=== PATIENT | male | born 1950 | race Caucasian/White ===

== ENCOUNTER 2018-08-12 08:23 | Outpatient (CLI) | payer MEDICARE, OTHER ==
[~2018-08-12] VITALS: Ht 185.4 cm; Wt 100.0 kg
--- NOTE | ~2018-08-12 | HEMODYNAMI ---
PATIENT:KULWINDER DUENAS MEDICAL RECORD: [id number] : 46 LOCATION:[facility] ADMISSION DATE: 08/12/18 Generatedon:08/12/201812:26 Patient name: KULWINDER DUENAS Patient #: [id number] SSN: : 1950 Date of study: 08/12/2018 Page: Of Hemodynamic Procedure Report Patient Data Patient Demographics Procedure consent was obtained First Name: KULWINDER Gender: Male Last Name: HENRIQUE : 1950 Patient #: [id number] Age: 68 year(s) Race: Additional ID: [id number] Contact details Address: [address] [place] [address] lane State: [place] City: [place] Zip code: [address] Past Medical History Allergies: No known allergies Admission Admission Data Admission Date: 08/12/2018 Admission Time: 8:23 Admit Source: Other Lab Results Lab Result Date: 08/12/2018 Lab Result Time: 8:55 Biochemistry Name Units Result Min Max BUN mg/dl 11 --(-*--)-- 7 18 Creatinine mg/dl 0.8 --(-*--)-- 0.6 1.3 CBC Name Units Result Min Max Hematocrit % 42 --(*---)-- 42 54 Hemoglobin g/dl 14.5 --(*---)-- 13.5 17.5 Procedure Procedure Types Cath Procedure Diagnostic Procedure [facility] w/Coronaries PCI Procedure Coronary Stent Coronary Stent Initial Procedure Description Procedure Date Procedure Date: 08/12/2018 Procedure Start Time: 12:12 Procedure End Time: 12:25 Procedure Staff Name Function Franki Arguello MD Performing Physician Miguel Tipton RT Monitor Amanda Elizalde RT Scrub Sharon Talebrt RN Nurse Raciel Kingsley RN Mdm Sr Procedure Data Cath Procedure Fluoroscopy Diagnostic fluoroscopy Total fluoroscopy Time: 2.6 time: 2.6 min min Diagnostic fluoroscopy Total fluoroscopy dose: 621 dose: 621 mGy mGy Contrast Material Contrast Material Type Amount (ml) Isovue 300 60 Entry Location Entry Primary Successful Side Size Upsize Upsize Entry Closure Johnson ccessful Closure Location (Fr) 1 (Fr) 2 (Fr) Remarks Device Remarks Radial Right 6 Fr Mechanical artery Short Compression Estimated blood loss: 10 ml Diagnostic catheters Device Type Used For End Catheter Placement DIAGNOSTIC Wylie 110cm 5 Procedure Fr catheter ([id number]) Procedure Complications No complications Procedure Medications Medication Administration Route Dosage 0.9% NaCl I.V. 100 ml/hr Oxygen etCO2 Nasal cannula 2 l/min Lidocaine 2% added to field 20 Heparin Flush Bag added to field 2 bags (1000units/500ml NS) Radial Cocktail added to field 1 syringe (Verapomil 2mg/Nitro 400mcg/Heparin 1500units) Versed I.V. 2 mg Fentanyl I.V. 50 mcg Heparin Bolus I.V. 4000 units Versed I.V. 2 mg Fentanyl I.V. 25 mcg Hemodynamics Rest HGB: 14.5 (g/dl) Heart Rate: 67 (bpm) Pressure Samples Time Site Value (mmHg) Purpose Heart Use Rate(bpm) 12:15 LV 166/58,13 Snapshot 96 Snapshots Pre Cath Intra NCS Post Cath Vital Signs Time Heart Resp SPO2 etCO2 NIBP (mmHg) Rhythm Pain Sedation Rate (ipm) (%) (mmHg) Status Level (bpm) 11:54:42 62 12 97 38 170/92(135) NSR 0 (11) 10(A) , No pain 11:59:02 63 13 99 35.8 156/88(138) NSR 0 (11) 10(A) , No pain 12:03:18 59 10 97 41.1 120/65(114) SB 0 (11) 10(A) , No pain 12:07:26 58 10 96 39.6 120/81(95) SB 0 (11) 10(A) , No pain 12:11:40 57 12 97 41.1 114/65(93) SB 0 (11) 10(A) , No pain 12:15:48 64 10 97 35.1 91/58(75) NSR 0 (11) 9(A) , No pain 12:19:52 63 12 97 39.6 100/59(77) NSR 0 (11) 9(A) , No pain 12:24:00 57 13 97 39.6 116/63(95) SB 0 (11) 10(A) , No pain Medications Time Medication Route Dose Verified Delivered Reason Not es Effectiveness by by 11:53:36 0.9% NaCl I.V. 100 Franki Sharon used for ml/hr Saundra Talbert pumping plant operator 11:53:45 Oxygen etCO2 2 l/min Franki Sharon used for Nasal Saundra Talbert procedure cannula RN 11:53:51 Lidocaine 2% added 20ml Franki Franki for local to vial Saundra Arguello MD anesthetic field 11:53:56 Heparin Flush added 2 bags Franki Franki used for Bag to Saundra Arguello MD procedure (1000units/500ml field NS) 11:54:06 Radial Cocktail added 1 Franki Franki used for (Verapomil to syringe Saundra Arguello MD procedure 2mg/Nitro field 400mcg/Heparin 1500units) 12:10:26 Versed I.V. 2 mg Franki Sharon for sedation Saundra Talbert RN 12:10:35 Fentanyl I.V. 50 mcg Franki Sharon for sedation Saundra Talbert RN 12:15:23 Versed I.V. 2 mg Franki Sharon for sedation Saundra Talbert RN 12:15:37 Fentanyl I.V. 25 mcg Franki Sharon for sedation Saundra Talbert RN 12:17:10 Heparin Bolus I.V. 4000 Franki Sharon for danette ified units Saundra Talbert anticoagulation with Dr. CAROLYN Arguello Procedure Log Time Note 11:30:12 Raciel Kingsley RN sent for patient. Start room use. 11:44:51 Informed consent obtained and on chart 11:44:53 Admit Source: Other 11:45:10 Diagnostic Cath status Elective 11:45:17 Time tracking: Regular hours (M-F 7:00 - 5:00) 11:45:20 Plan of Care:Hemodynamics will remain stable., Cardiac rhythm will remain stable., Comfort level will be maintained., Respiratory function will remain adequate., Patient/ family verbilizes understanding of procedure., Procedure tolerated without complication., Recovers from procedure without complications.. 11:45:31 H&P Date Dictated: 08/09/2018 Within 30 days and on chart., H&P Addendum completed by physician on day of procedure. (MUST COMPLETE FOR ALL OUTPATIENTS). 11::44 Lab Result : Creatinine 0.8 mg/dl ::44 Lab Result : BUN 11 mg/dl ::44 Lab Result : Hemoglobin 14.5 g/dl :44 Lab Result : Hematocrit 42 % 11:47:48 Lab results completed and on chart. 11:49:24 Patient received from Pre/Post Procedure Room to CCL 1 Alert and oriented. Tansferred to table in Supine position. 11:49:26 Warm blankets applied, and wojciech hugger turned on for patient comfort. 11:49:26 Correct patient and procedure confirmed by team. 11:49:27 ECG and BP/O2 sat monitors applied to patient. 11:49:35 Pre-procedure instructions explained to patient. 11:49:35 Pre-op teaching completed and patient verbalized understanding. 11:49:37 Family in waiting room. 11:49:38 Patient NPO since Midnight. 11:53:19 Vital chart was started 11:53:36 0.9% NaCl 100 ml/hr I.V. was administered by Sharon Talbert RN; used for procedure; 11:53:45 Oxygen 2 l/min etCO2 Nasal cannula was administered by Sharon Talbert RN; used for procedure; 11:53:51 Lidocaine 2% 20ml vial added to field was administered by Franki Arguello MD; for local anesthetic; 11:53:56 Heparin Flush Bag (1000units/500ml NS) 2 bags added to field was administered by Franki Arguello MD; used for procedure; 11:54:06 Radial Cocktail (Verapomil 2mg/Nitro 400mcg/Heparin 1500units) 1 syringe added to field was administered by Franki Arguello MD; used for procedure; 11:56:18 Baseline sample Acquired. 11:56:33 Full Disclosure recording started 11:56:58 Is the patient allergic to Iodine/contrast media? No. 11:57:03 Was the patient premedicated? N/A 11:57:10 Is patient on blood thinner?Yes 11:57:29 Patient diabetic? No. 11:57:32 If diabetic: On Metformin? N/A 11:57:54 ACC The patient was administered the following blood thiners within the last 24 hours: ACCPlavix 12:02:33 ACC The patient was administered the following blood thiners within the last 24 hours: ACCPlavix 12:02:52 Previous problem with sedation/anesthesia? No ? 12:02:55 Snore? Yes 12:02:56 Sleep apnea? Yes 12:02:58 Deviated septum? No 12:02:59 Opens mouth fully? Yes 12:03:00 Sticks out tongue? Yes 12:03:01 Airway obstruction? No ? 12:03:03 Dentures? No ? 12:03:07 Pre procedure: right dorsailis pedis pulse 2+ Normal; easily identifiable; not easily obliterated 12:03:09 Modified Sunny's test Ulnar < 7 seconds 12:03:10 Patient pain scale 0/10 ?. 12:03:15 IV patent on arrival in left forearm with 0.9% NaCl at [facility]. 12:03:19 Right Radial & Right Groin area was prepped with chlora-prep and draped in sterile fashion 12:03:20 Alarms reviewed by R. N. 12:03:20 Sharps counted by scrub and verified by R.N. 12:03:22 Use device set Radial Dx or PCI 12:03:23 ACIST Syringe (87768) opened to sterile field. 12:03:23 Medline Cath Pack ([id number]) opened to sterile field. 12:03:24 Bag Decanter (2002S) opened to sterile field. 12:03:25 ACIST Hand Control (78379) opened to sterile field. 12:03:25 ACIST Manifold (36251) opened to sterile field. 12:03:25 Tegaderm 4 x 4 (1626W) opened to sterile field. 12:03:26 MBrace Wrist Support ([id number]) opened to sterile field. 12:03:27 DIAGNOSTIC WIRE .035 260cm J wire (064039) opened to sterile field. 12:03:28 SHEATH 6Fr Prelude Radial ([id number]) opened to sterile field. 12:03:36 Baseline sample Acquired. 12:03:39 Rhythm: sinus rhythm 12:03:57 Physician paged 12:05:56 Zero performed for pressure channel P1 12:09:43 Physician arrived 12:09:43 --------ALL STOP TIME OUT------ 12:09:44 Final Timeout: patient, procedure, and site verified with staff and physician. All members of the team are in agreement. 12:09:57 Right Radial & Right Groin site verified by team. 12:10:00 Physical assessment completed. ASA score P 2 - A patient with mild systemic disease as per Franki Arguello MD. 12:10:06 Sedation plan: IV Moderate Sedation Medication:Versed, Fentanyl 12:10:26 Versed 2 mg I.V. was administered by Sharon Talbert RN; for sedation; 12:10:35 Fentanyl 50 mcg I.V. was administered by Sharon Talbert RN; for sedation; 12:12:52 Procedure started. 12:12:55 Local anesthetic to right radial artery with Lidocaine 2% by Franki Arguello MD.INITIAL ACCESS ONLY 12:13:39 A 6 Fr Short sheath was inserted into the Right Radial artery 12:13:44 A DIAGNOSTIC Wylie 110cm 5 Fr catheter (082404) was advanced over the wire and used for Procedure. 12:15:09 LV gram done using SHINE 12:15:12 Injector settings: Ml/sec: 5, Volume: 15, 12:15:14 LV hemodynamics recorded. 12:15:23 Versed 2 mg I.V. was administered by Sharon Talbert RN; for sedation; 12:15:29 EF : 60 % 12:15:37 Fentanyl 25 mcg I.V. was administered by Sharon Talbert RN; for sedation; 12:15:46 LCA angiography performed. 12:16:24 CHOICE Floppy Straight 300cm guide wire ([id number]) opened to sterile field. 12:16:24 INFLATOR Merit BasixCompak (BI8044) opened to sterile field. 12:16:31 RCA angiography performed. 12:17:10 Heparin Bolus 4000 units I.V. was administered by Sharon Talbert RN; for anticoagulation; verified with Dr. Arguello 12:18:32 GUIDE 6FR XBC 3.5 (10072074) opened to sterile field. 12:18:35 Catheter removed. 12:18:40 6 Fr XBC 3.5 guide catheter was inserted over the wire 12:18:44 CHOICE PT ES wire advanced. 12:19:28 Wire advanced across lesion. 12:20:44 Place stent Inflation Number: 1 A LIZ RX 3.5 x 22 stent ([id number]) was prepped and advanced across the Prox LAD. The stent was deployed at 15 BENJIE for 0:10 (min:sec). 12::30 Stent catheter was removed intact over wire. 12::32 Wire removed. 12::33 Guide catheter removed. 12:22:14 TR BAND Standard ([id number]) opened to sterile field. 12::21 Sheath removed intact; hemostasis achieved with Mechanical Compression to the Right Radial artery. 12::22 Procedure ended.(Physican Out) 12:23:49 Fluoroscopy time 02.60 minutes. 12:24:00 Fluoroscopy dose: 621 mGy 12:24:00 Flurop Dose total: 621 12:24:03 Contrast amount:Isovue 300 60ml. 12:24:05 Sharps counted by scrub and verified by R.N. 12:24:06 TR band inflated with 11cc of air. 12:24:08 Insertion/operative site no bleeding no hematoma. 12:24:18 Post right radial artery:stable, soft, clean and dry 12:24:19 Post Procedure Pulses reassessed and unchanged 12:24:21 Post-procedure physical assessment completed. ASA score P 2 - A patient with mild systemic disease as per Franki Arguello MD. 12:24:23 Post procedure rhythm: unchanged. 12:24:42 Estimated blood loss: 10 ml 12::44 Post procedure instruction explained to patient.Patient verbalizes understanding. 12:24:44 Patient needs reinforcement of post procedure teaching. 12:24:59 Procedure type changed to Cath procedure, Diagnostic procedure, LHC, C w/Coronaries, PCI procedure, Coronary Stent, Coronary Stent Initial 12:25:25 Procedure and supply charges have been captured, reviewed, submitted and are correct. 12:25:26 Procedure Complication : No complications 12:25:28 Vital chart was stopped 12:25:29 See physician's report for complete and final results. 12::30 Report given to Pre/Post Procedure Room. 12:25:33 Patient transfered to Pre/Post Procedure Room with Stretcher. 12:25:38 Procedure ended. 12:25:38 Full Disclosure recording stopped 12:25:41 End room use (Document Last) Intervention Summary Intervention Notes Time ActionType Lesion and Equipment Used Action# Pressure Duration Attributes 12:20:[address] stent Prox LAD LIZ RX 3.5 x 1 15 00:10 22 stent ([id number]) Device Usage Item Name Manufacture Quantity Catalog Number Hospital Part Current Minimal Lot# / Charge Number Stock Stock Serial# Code ACIST Syringe Acist 1 10230 290412 734079 010673 20 (84154) Medical Systems Inc Medline Cath Medline 1 [id number] 638104 00658 308559 5 Pack ([id number]) Bag Decanter Microtek 1 2001S 471112 33529 376163 5 (2001S) Medical Inc. ACIST Hand Acist 1 69528 238239 546197 519998 5 Control (72379) Medical Systems Inc ACIST Manifold Acist 1 42290 989096 155681 912266 5 (01739) Medical Systems Inc Tegaderm 4 x 4 3M 1 1626W 409219 238685 717610 5 (1626W) MBrace Wrist Advanced 1 140-0250-00 887121 44973 509636 5 Support Vascular ([id number]) Dynamics DIAGNOSTIC WIRE St Vance 1 728096 994654 309568 402783 30 .035 260cm J wire (783932) SHEATH 6Fr Merit 1 [id number] 129581 924160 161891 5 Prelude Radial Medical ([id number]) DIAGNOSTIC Terumo 1 40-5013 454685 496174 059327 5 Wylie 110cm 5 Fr catheter (347866) CHOICE Floppy [place] 1 [id number] 963226 583939 645052 5 Straight 300cm Scientific guide wire ([id number]) INFLATOR Merit Merit 1 SJ2476 019664 814316 683458 15 [facility] Medical ([id number]) GUIDE 6FR XBC Cardinal 1 [id number] 664871 28569 081182 5 3.5 ([id number]) Health LIZ RX 3.5 x Medtronic 1 [id number] 604064 4071312 370963 5 [id number] 22 stent ([id number]) TR BAND Terumo 1 [id number] 156755 148959 513517 40 Standard ([id number]) Signature Audit [place] Stage Time Signature Unsigned Intra-Procedure 08/12/2018 Miguel Tipton 12:26:21 PM RT(R) Signatures Monitor : Miguel Tipton RT Signature : Date : Time : [facility] [address] [place] [address]
--- NOTE | ~2018-08-12 | OP ---
PATIENT NAME: KULWINDER DUENAS MEDICAL RECORD: [id number] :46 LOCATION:D.CAT ADMISSION DATE: SURGEON: BRENDAN SANTA MD DATE OF OPERATION: 08/12/2018 DATE OF SERVICE: 08/12/2018 PROCEDURES: 1. PTCA stent LAD. 2. Left heart catheterization. 3. Selective coronary angiography. 4. Left ventriculogram. INDICATION: Angina and coronary artery disease. PROCEDURE IN DETAIL: After informed consent was obtained and after a detailed description of risks, benefits as well as alternative therapies, the patient elected to proceed with angiogram and angioplasty. The right radial area was prepped and draped in normal sterile fashion. Right radial artery was cannulated via modified Seldinger technique with placement of 6-Scottish sheath. All catheters exchanged through this sheath. FINDINGS: The left ventriculogram was performed in standard 30-degree SHINE view, reveals good cardiac wall motion throughout all segments. Overall ejection fraction estimated 60%. SELECTIVE CORONARY ANGIOGRAPHY: 1. Left main is with no significant angiographic disease. 2. Left anterior descending has 85% stenosis proximally. 3. Left circumflex has moderate irregularities, but no flow-limiting stenosis. 4. The right coronary has multiple areas of 70% to 80% stenosis throughout. PTCA STENT OF THE LAD: The stent used was a 3.5 x 22 mm Nic. Result was 0% residual stenosis. OVERALL IMPRESSION: Successful percutaneous transluminal coronary angioplasty stent of the left anterior descending going from 85% initial stenosis to 0% residual. PLAN: PTCA stent of the RCA in the near future. TRANSINT:[id number] Voice Confirmation ID: [id number] DOCUMENT ID: [id number] BRENDAN SANTA MD at 1914 CC: [id number] DICTATION DATE: 08/12/18 1227 CLINICAL NURSE REVIEWER: 08/12/18 1242 DEP CLI 08/12/18 [place] [id number] [place] [id number]
[~2018-08-12 08:23] MED LIST: ALEVE220 MG PO; BAYER CHEWABLE81 MG PO; CALCIUM 600 +1 EAC3 PO; MULTIPLE VITAMI1 TA1 PO; WELLBUTRIN SR150 MG PO
[2018-08-12] MEDS ORDERED: NORVASC2.5 MG PO (08:42)
[2018-08-12] MEDS ORDERED: ISOSORBIDE MONO30 M1 PO (08:42)
[2018-08-12] MEDS ORDERED: LIPITOR80 MG PO (08:44)
[2018-08-12] MEDS ORDERED: PLAVIX75 MG PO (08:45)
[2018-08-12 08:48] VITALS: BP 154/84; Ht 185.4 cm; Wt 100.0 kg
[2018-08-12 09:04] LABS: HEMOGLOBIN 14.5 g/dL (13.5-17.5); LYMPHOCYTES 27.6 % (15-50); MCH 29.2 pg (26.0-34.0); MCHC 34.5 g/dL (31.0-37.0); MCV 84.5 fL (80.0-100.0); NEUTROPHILS 58.4 % (40-80); PLATELET COUNT 133 10x3/uL (130-400); RBC 4.97 10x6/uL (4.20-6.10); RDW 13.7 % (11.5-14.5); WBC 5.9 10x3/uL (4.8-10.8)
[2018-08-12 09:08] LABS: CALC OSMOLALITY 283 mosm/kg (275-300); CALCIUM 8.7 mg/dL (8.5-10.1); CARBON DIOXIDE 26.8 mmol/L (21.0-32.0); CHLORIDE - SERUM 107 mmol/L (98-107); CREATININE - SERUM 0.8 mg/dL (0.6-1.3); GLUCOSE 98 mg/dL (74-106); SODIUM 143 mmol/L (136-145); UREA NITROGEN 11 mg/dL (7-18); eGFR NON AFRICAN AMERICAN > 90 mL/min (90-120)
[2018-08-12 09:10] LABS: POTASSIUM - SERUM 4.4 mmol/L (3.5-5.1)
== END 2018-08-12 16:35 | disposition home or self-care (01) ==
LOC: D.CATH 08:23
PROVIDERS: Internal Medicine Interventional Cardiology
DX: I25.110 Atherosclerotic heart disease of native coronary artery with unstable angina pectoris (principal)
CPT/HCPCS: 93458; C9600

== ENCOUNTER 2018-08-16 07:29 | Outpatient (CLI) | payer MEDICARE, OTHER ==
[~2018-08-16] VITALS: Ht 185.4 cm; Wt 100.0 kg
--- NOTE | ~2018-08-16 | HP ---
PATIENT: KULWINDER DOUGLAS MEDICAL RECORD: [id number] ACCOUNT: [id number] LOCATION:AMBER : 46 ADMISSION DATE: 08/16/18 PCP: DOCTOR JOSELO HISTORY AND PHYSICAL EXAMINATION DATE OF SERVICE: 08/16/2018 DIAGNOSES: 1. Angina. 2. Coronary artery disease. 3. Recent PTCA stent to LAD with concomitant disease of RCA. 4. Hypertension. 5. Hyperlipidemia. HISTORY OF PRESENT ILLNESS: Mr. Douglas presents with anginal symptomatology, found to have 2-vessel disease of the LAD and RCA, underwent successful PTCA stent of the LAD, now is brought back for PTCA stent of the RCA. PHYSICAL EXAMINATION: GENERAL APPEARANCE: Well-nourished, well-developed, appears stated age. Level of distress, comfortable. PSYCHIATRIC: Mental status, alert, normal affect. Orientation, oriented to time, place and person. EYES: Lids and conjunctiva, noninjected. No discharge, no pallor. ENT: Lips, teeth, gums, normal dentition. Oropharynx, no cyanosis, no pallor. NECK: Carotid arteries, bilateral normal upstroke, no bruits, no thrills. JUGULAR VEINS: No jugular venous pressure or distention. CERVICAL LYMPH NODES: Nontender, nonenlarged. THYROID: Not enlarged. Nontender. No nodules. LUNGS: Respiratory effort, unlabored. CHEST: Normal curvature. No thoracic deformity. No chest wall tenderness. Percussion, resonant. Auscultation, clear. No wheezes, no rales, no rhonchi. CARDIOVASCULAR: Precordial exam, nondisplaced. No heaves or pericardial thrills. Rate and rhythm, regular. Heart sounds, normal S1, normal S2. No S3, no gallop, no rub. Systolic murmur, not heard. Diastolic murmur, not heard. EXTREMITIES: No cyanosis, no edema. Peripheral pulses, full and equal in all extremities, except as noted. No bruits appreciated. ABDOMEN: Soft, nondistended. Normal aorta. No bruit. Nontender. No masses. Liver, nontender, no hepatomegaly. Spleen, nontender, no splenomegaly. MUSCULOSKELETAL: No joint tenderness. No joint swelling. No erythema. NEUROLOGICAL: Normal gait, normal strength, normal tone. SKIN: Warm and dry. REVIEW OF SYSTEMS: The patient reports easy bruising but reports no swollen glands. The patient reports no fever, no night sweats, no significant weight gain, no significant weight loss. No significant exercise tolerance. The patient reports no dry eyes, no irritation, no vision change. Patient reports no difficulty hearing and no ear pain. Patient reports no frequent nose bleeds or nose and sinus problems. Patient reports on arm pain on exertion. No shortness of breath while lying down. No history of heart murmur. Patient reports no cough, no wheezing or coughing up blood. Patient reports no abdominal pain, no vomiting. Normal appetite. No diarrhea and not vomiting blood. No nausea and no constipation. Patient reports no incontinence. No difficulty urinating. No hematuria. No increased frequency. Patient reports no muscle aches. No weakness, no arthralgias, no back pain. No swelling of the HISTORY AND PHYSICAL [id number] KULWINDER DOUGLAS extremities. Patient reports no abnormal mole, no jaundice, no rashes. Reports no loss of consciousness. No weakness and no numbness. No seizures, dizziness, or headaches. The patient reports no depression, no sleep disturbance, feeling safe in a relationship and no alcohol abuse. Patient reports on fatigue. Reports no runny nose or sinus pressure. No itching, no hives, and no frequent sneezing. OVERALL IMPRESSION: Anginal symptomatology with significant disease of the RCA. We will proceed with PTCA of the RCA. TRANSINT:[id number] Voice Confirmation ID: [id number] DOCUMENT ID: [id number] BRENDAN SANTA MD at 1235 CC: [id number] DICTATION DATE: 08/16/18 1018 MARGARINE CHURN OPERATOR: 08/16/18 1036 [facility] [address] [place] [id number]
--- NOTE | ~2018-08-16 | OP ---
PATIENT NAME: KULWINDER DUENAS MEDICAL RECORD: [id number] :46 LOCATION:D.CAT ADMISSION DATE: SURGEON: BRENDAN SANTA MD DATE OF OPERATION: 08/16/2018 PROCEDURES: 1. PTCA stent RCA. 2. Selective coronary angiography. INDICATION: Angina and coronary artery disease. PROCEDURE PERFORMED: After informed consent was obtained and after a detailed description of risks, benefits as well as alternative therapies, the patient elected to proceed with angiogram and angioplasty. The right radial area was prepped and draped in normal sterile fashion. Right radial artery was cannulated via modified Seldinger technique with placement of 6-Wolof sheath. All catheters exchanged through this sheath. FINDINGS: The right coronary artery has multiple areas of 80+ percent stenosis. This was addressed with a 2.5 x 26 mm [place] and a 2.75 x 12 mm Nic. Result was 0% residual stenosis. OVERALL IMPRESSION: Successful percutaneous transluminal coronary angioplasty stent of the right coronary artery going from multiple areas of 80% initial stenosis to 0% residual. TRANSINT:[id number] Voice Confirmation ID: [id number] DOCUMENT ID: [id number] BRENDAN SANTA MD at 1235 CC: [id number] DICTATION DATE: 08/16/18 1039 TRACK WALKER: 08/16/18 1053 [address] [place] [id number] [place] [address]
--- NOTE | ~2018-08-16 | HEMODYNAMI ---
PATIENT:KULWINDER DUENAS MEDICAL RECORD: [id number] : 46 LOCATION:[facility] ADMISSION DATE: 08/16/18 Generatedon:08/16/201810:40 Patient name: KULWINDER DUENAS Patient #: [id number] SSN: : 1950 Date of study: 08/16/2018 Page: Of Hemodynamic Procedure Report Patient Data Patient Demographics Procedure consent was obtained First Name: KULWINDER Gender: Male Last Name: HENRIQUE : 1950 Patient #: [id number] Age: 68 year(s) Race: Additional ID: [id number] Contact details Address: [address] [place] [address] lane State: [place] City: [place] Zip code: [address] Past Medical History Allergies: No known allergies Admission Admission Data Admission Date: 08/16/2018 Admission Time: 7:29 Lab Results Lab Result Date: 08/12/2018 Lab Result Time: 8:55 Biochemistry Name Units Result Min Max BUN mg/dl 11 --(-*--)-- 7 18 Creatinine mg/dl 0.8 --(-*--)-- 0.6 1.3 CBC Name Units Result Min Max Hematocrit % 42 --(*---)-- 42 54 Hemoglobin g/dl 14.5 --(*---)-- 13.5 17.5 Procedure Procedure Types Cath Procedure PCI Procedure Coronary Stent Coronary Stent Initial Procedure Description Procedure Date Procedure Date: 08/16/2018 Procedure Start Time: 10:27 Procedure End Time: 10:39 Procedure Staff Name Function Franki Arguello MD Performing Physician Rachana Galvan RT Monitor Deo Greene RT Scrub Cheng Gold RN Nurse Procedure Data Cath Procedure Fluoroscopy Diagnostic fluoroscopy Total fluoroscopy Time: 3.1 time: 3.1 min min Diagnostic fluoroscopy Total fluoroscopy dose: 113 dose: 113 mGy mGy Contrast Material Contrast Material Type Amount (ml) Isovue 300 66 Entry Location Entry Primary Successful Side Size Upsize Upsize Entry Closure Johnson ccessful Closure Location (Fr) 1 (Fr) 2 (Fr) Remarks Device Remarks Radial Right 6 Fr Mechanical artery Short Compression Estimated blood loss: 10 ml Procedure Complications No complications Procedure Medications Medication Administration Route Dosage Heparin Flush Bag added to field 2 bags (1000units/500ml NS) Lidocaine 2% added to field 50 Oxygen etCO2 Nasal cannula 2 l/min Versed I.V. 1 mg Fentanyl I.V. 50 mcg Radial Cocktail I.A. 1 syringe (Verapomil 2mg/Nitro 400mcg/Heparin 1500units) Heparin Bolus I.V. 4000 units Versed I.V. 1 mg Fentanyl I.V. 25 mcg Hemodynamics Rest HGB: 14.5 (g/dl) Heart Rate: 68 (bpm) Snapshots Pre Cath Intra NCS Post Cath Vital Signs Time Heart Resp SPO2 etCO2 NIBP (mmHg) Rhythm Pain Sedation Rate (ipm) (%) (mmHg) Status Level (bpm) 10:09:43 65 13 96 0 147/87(129) NSR 0 (11) 10(A) , No pain 10:14:01 61 14 96 0 137/82(104) NSR 0 (11) 10(A) , No pain 10:18:26 62 13 96 34.5 121/49(82) NSR 0 (11) 10(A) , No pain 10:22:42 65 14 94 19.4 122/72(99) NSR 0 (11) 10(A) , No pain 10:26:53 62 15 93 44.2 110/63(82) NSR 0 (11) 9(A) , No pain 10:31:03 69 14 94 23.2 87/53(72) NSR 0 (11) 9(A) , No pain 10:35:05 68 13 94 21 103/67(85) NSR 0 (11) 9(A) , No pain 10:39:17 68 15 93 21.7 123/63(97) NSR 0 (11) 10(A) , No pain Medications Time Medication Route Dose Verified Delivered Reason Not es Effectiveness by by 10:16:19 Heparin Flush added 2 bags Buffie Buffie used for Bag to Alla RN Alla hand clipper (1000units/500ml field NS) 10:16:55 Lidocaine 2% added 50 ml Buffie Buffie used for to vial Gold RN Gold hand clipper field 10:17:16 Oxygen etCO2 2 l/min Buffie Buffie used for Nasal Alla Gold RN procedure cannula 10:21:11 Versed I.V. 1 mg Buffie Buffie for sedation Alla Gold RN 10:21:18 Fentanyl I.V. 50 mcg Buffie Buffie for sedation Alla Gold RN 10:22:20 Radial Cocktail I.A. 1 Buffswati Franki for (Verapomil syringe Alla Arguello MD vasodilation 2mg/Nitro 400mcg/Heparin 1500units) 10:29:23 Heparin Bolus I.V. 4000 Buffie Buffie for danette ified units Alla Gold RN anticoagulation with dr arguello 10:32:17 Versed I.V. 1 mg Buffie Buffie for sedation Alla Gold RN 10:32:21 Fentanyl I.V. 25 mcg Buffie Buffie for sedation Alla Gold RN Procedure Log Time Note 9:47:29 Time tracking: Regular hours (M-F 7:00 - 5:00) 9:47:32 Plan of Care:Hemodynamics will remain stable., Cardiac rhythm will remain stable., Comfort level will be maintained., Respiratory function will remain adequate., Patient/ family verbilizes understanding of procedure., Procedure tolerated without complication., Recovers from procedure without complications.. 9:55:49 Deo INFANTE(R) sent for patient. Start room use. 10:00:27 Patient received from Pre/Post Procedure Room to CCL 3 Alert and oriented. Tansferred to table in Supine position. 10:00:28 Warm blankets applied, and wojciech hugger turned on for patient comfort. 10:00:29 Correct patient and procedure confirmed by team. 10:00:30 Signed procedure consent form obtained from patient. 10:00:31 ECG and BP/O2 sat monitors applied to patient. 10:00:32 Full Disclosure recording started 10:08:36 Vital chart was started 10:08:38 Baseline sample Acquired. 10:10:47 Rhythm: sinus rhythm 10:10:55 H&P Date Dictated: 08/16/2018 New H&P dictated by physician.. 10:10:57 Pre-procedure instructions explained to patient. 10:10:57 Pre-op teaching completed and patient verbalized understanding. 10:10:59 Family in waiting room. 10:11:01 Patient NPO since Midnight. 10:11:05 Patient allergic to No known allergies 10:11:07 Is the patient allergic to Iodine/contrast media? No. 10:11:09 Is patient on blood thinner?Yes 10:11:11 ACC The patient was administered the following blood thiners within the last 24 hours: ACCPlavix 10:11:14 Patient diabetic? No. 10:11:20 Previous problem with sedation/anesthesia? No ? 10:11:21 Snore? Yes 10:11:22 Sleep apnea? Yes 10:11:23 Deviated septum? No 10:11:24 Opens mouth fully? Yes 10:11:25 Sticks out tongue? Yes 10:11:26 Airway obstruction? No ? 10:11:28 Dentures? No ? 10:11:32 Pre procedure: right dorsailis pedis pulse 2+ Normal; easily identifiable; not easily obliterated 10:11:33 Modified Sunny's test Ulnar < 7 seconds 10:11:35 Patient pain scale 0/10 ?. 10:11:40 IV patent on arrival in left forearm with 0.9% NaCl at [facility]. 10:11:43 Lab results completed and on chart. 10:11:48 Right Radial & Right Groin area was prepped with chlora-prep and draped in sterile fashion 10:11:48 Alarms reviewed by R. N. 10:11:49 Sharps counted by scrub and verified by R.N. 10:11:58 Use device set Radial Dx or PCI 10:11:59 ACIST Syringe (97690) opened to sterile field. 10:12:00 Medline Cath Pack ([id number]) opened to sterile field. 10:12:00 Bag Decanter (2002) opened to sterile field. 10:12:01 DIAGNOSTIC WIRE .035 260cm J wire (245032) opened to sterile field. 10:12:01 ACIST Hand Control (38738) opened to sterile field. 10:12:02 ACIST Manifold (28345) opened to sterile field. 10:12:02 Tegaderm 4 x 4 (1626W) opened to sterile field. 10:12:16 SHEATH 6Fr Prelude Radial ([id number]) opened to sterile field. 10:16:19 Heparin Flush Bag (1000units/500ml NS) 2 bags added to field was administered by Cheng Gold RN; used for procedure; 10:16:55 Lidocaine 2% 50 ml vial added to field was administered by Cheng Gold RN; used for procedure; 10:17:16 Oxygen 2 l/min etCO2 Nasal cannula was administered by Cheng Gold RN; used for procedure; 10:18:24 Final Timeout: patient, procedure, and site verified with staff and physician. All members of the team are in agreement. 10:18:26 Right Radial & Right Groin site verified by team. 10:18:29 Physical assessment completed. ASA score P 2 - A patient with mild systemic disease as per Franki Arguello MD. 10:18:32 Sedation plan: IV Moderate Sedation Medication:Versed, Fentanyl 10::11 Versed 1 mg I.V. was administered by Cheng Gold RN; for sedation; ::18 Fentanyl 50 mcg I.V. was administered by Cheng Gold RN; for sedation; 10:22:20 Radial Cocktail (Verapomil 2mg/Nitro 400mcg/Heparin 1500units) 1 syringe I.A. was administered by Franki Arguello MD; for vasodilation; 10:23:51 Zero performed for pressure channel P1 10:24:03 GUIDE 6FR AR 2.0 SH catheter ([id number]) opened to sterile field. 10:27:11 Procedure started. 10:27:15 Local anesthetic to right radial artery with Lidocaine 2% by Franki Arguello MD.INITIAL ACCESS ONLY 10:28:02 A 6 Fr Short sheath was inserted into the Right Radial artery 10:29:13 6 Fr AR 2.0 SH guide catheter was inserted over the wire 10:29:23 Heparin Bolus 4000 units I.V. was administered by Cheng Gold RN; for anticoagulation; verified with dr arguello 10:30:52 CHOICE PT ES wire advanced. 10:32:17 Versed 1 mg I.V. was administered by Cheng Gold RN; for sedation; 10:32:21 Fentanyl 25 mcg I.V. was administered by Cheng Gold RN; for sedation; 10:32:58 Place stent Inflation Number: 1 A LIZ RX 2.5 x 26 stent ([id number]) was prepped and advanced across the Mid RCA. The stent was deployed at 13 BENJIE for 0:10 (min:sec). 10:33:03 Stent catheter was removed intact over wire. 10:34:44 Place stent Inflation Number: 1 A LIZ RX 2.75 x 12 stent ([id number]) was prepped and advanced across the Prox RCA. The stent was deployed at 13 BENJIE for 0:07 (min:sec). 10:34:59 Stent catheter was removed intact over wire. 10:34:59 Wire removed. 10:35:00 Guide catheter removed. 10:35:11 Sheath removed intact; hemostasis achieved with Mechanical Compression to the Right Radial artery. 10:35:13 Procedure ended.(Physican Out) 10:35:24 Fluoroscopy time 03.10 minutes. 10:35:28 Flurop Dose total: 113 10:35:29 Fluoroscopy dose: 113 mGy 10:35:32 Contrast amount:Isovue 300 66ml. 10:35:34 Sharps counted by scrub and verified by R.N. 10:35:36 TR band inflated with 10cc of air. 10:35:37 Insertion/operative site no bleeding no hematoma. 10:35:47 Post right radial artery:stable, clean and dry 10:35:49 Post Procedure Pulses reassessed and unchanged 10:35:51 Post-procedure physical assessment completed. ASA score P 2 - A patient with mild systemic disease as per Franki Arguello MD. 10:35:53 Post procedure rhythm: unchanged. 10:35:57 Estimated blood loss: 10 ml 10:35:58 Post procedure instruction explained to patient.Patient verbalizes understanding. 10:35:59 Patient needs reinforcement of post procedure teaching. 10:36:12 TR BAND Standard ([id number]) opened to sterile field. 10:36:42 Procedure Complication : No complications 10:36:44 See physician's report for complete and final results. 10:38:13 Procedure and supply charges have been captured, reviewed, submitted and are correct. 10:39:42 Vital chart was stopped 10:39:44 Report given to Pre/Post Procedure Room. 10:39:47 Patient transfered to Pre/Post Procedure Room with Stretcher. 10:39:56 Procedure ended. 10:39:56 Full Disclosure recording stopped 10:39:59 End room use (Document Last) Intervention Summary Intervention Notes Time ActionType Lesion and Equipment Used Action# Pressure Duration Attributes 10:32:58 Place stent Mid RCA LIZ RX 2.5 x 1 13 00:10 26 stent ([id number]) 10:34:44 Place stent Prox RCA LIZ RX 2.75 x 1 13 00:07 12 stent ([id number]) Device Usage Item Name Manufacture Quantity Catalog Number Hospital Part Current Minimal Lot# / Charge Number Stock Stock Serial# Code ACIST Syringe Acist 1 36233 320267 301094 [id number] 20 ([id number]) [employer] Medline Cath Medline 1 [id number] 113714 41443 469849 5 Pack ([id number]) Bag Decanter Microtek 1 2001S 426910 44477 763059 5 (2001S) Medical Inc. DIAGNOSTIC WIRE St Vance 1 012607 360733 019156 425481 30 .035 260cm J wire (073591) ACIST Hand Acist 1 37776 431485 237410 746838 5 Control (65376) [employer] ACIST Manifold Acist 1 58645 759036 430569 842333 5 (54584) [employer] Tegaderm 4 x 4 3M 1 1626W 096924 658531 863648 5 (1626W) SHEATH 6Fr Merit 1 [id number] 855196 272045 243351 5 Prelude Radial Medical ([id number]) GUIDE 6FR AR Medtronic 1 [id number] 158542 67594 685004 1 2.0 SH catheter ([id number]) LIZ RX 2.5 x Medtronic 1 [id number] 386760 9376730 552868 5 [id number] 26 stent ([id number]) LIZ RX 2.75 x Medtronic 1 [id number] 004898 9370463 648991 5 [id number] 12 stent ([id number]) TR BAND Terumo 1 [id number] 473777 368073 637457 40 Standard ([id number]) Signature Audit [place] Stage Time Signature Unsigned Intra-Procedure 08/16/2018 Rachana 10:40:54 AM Counts RT(R) Signatures Monitor : Rachana Signature : Counts RT Date : Time : [facility] [address] [place] [address]
[~2018-08-16 07:29] MED LIST changes: +ISOSORBIDE MONO30 M1 PO; +LIPITOR80 MG PO; +NORVASC2.5 MG PO; +PLAVIX75 MG PO
[2018-08-16 08:17] VITALS: BP 153/75; Ht 185.4 cm; Wt 100.0 kg
[2018-08-16 08:34] LABS: CALC OSMOLALITY 282 mosm/kg (275-300); CALCIUM 8.9 mg/dL (8.5-10.1); CHLORIDE - SERUM 106 mmol/L (98-107); CREATININE - SERUM 0.9 mg/dL (0.6-1.3); GLUCOSE 96 mg/dL (74-106); SODIUM 142 mmol/L (136-145); UREA NITROGEN 13 mg/dL (7-18); eGFR NON AFRICAN AMERICAN 89 mL/min (90-120)
[2018-08-16 08:37] LABS: BASOPHILS 0.6 % (0-2); EOSINOPHILS 6.4 % (0-7); HEMATOCRIT 42.8 % (42.0-54.0); HEMOGLOBIN 14.8 g/dL (13.5-17.5); IMMATURE GRANULOCYTES 0.4 % (0-5); LYMPHOCYTES 25.8 % (15-50); MCHC 34.6 g/dL (31.0-37.0); MCV 86.6 fL (80.0-100.0); MEAN PLATELET VOLUME 10.7 fL (7.4-10.4); MONOCYTES 8.9 % (2-11); NEUTROPHILS 57.9 % (40-80); PLATELET COUNT 131 10x3/uL (130-400); RBC 4.94 10x6/uL (4.20-6.10); RDW 13.6 % (11.5-14.5); WBC 7.1 10x3/uL (4.8-10.8)
== END 2018-08-16 14:45 | disposition home or self-care (01) ==
LOC: D.CATH 07:29
PROVIDERS: Internal Medicine Interventional Cardiology
DX: I25.119 Atherosclerotic heart disease of native coronary artery with unspecified angina pectoris (principal); Z95.5 Presence of coronary angioplasty implant and graft; I10 Essential (primary) hypertension; E78.5 Hyperlipidemia, unspecified; Z01.812 Encounter for preprocedural laboratory examination

== ENCOUNTER → 2019-03-29 14:09 | Outpatient (CLI) | payer MEDICARE, OTHER ==
[2018-08-16 08:17] VITALS: BMI 29.0
--- NOTE | 2019-03-31 09:40 | EC ---
PATIENT:KULWINDER DUENAS DATE OF SERVICE: 03/29/19 SEX: M MEDICAL RECORD: [id number] DATE OF : 46 [facility] AGE OF PATIENT: 68 ADMISSION DATE: 03/29/19 REFERRING PHYSICIAN: INTERPRETING PHYSICIAN: BRENDAN ARGUELLO MD ECHOCARDIOGRAM REPORT ECHO CHARGES 4 ECHO COMPLETE Date: 03/29/19 CLINICAL DIAGNOSIS: MURMUR H/O CAD/HTN ECHOCARDIOGRAPHIC MEASUREMENTS (adult normal given) AC root (d.<3.7cm) 3.7 cm LV Septum d (<1.2 cm> 1.3 cm Valve Excursion 1.8 cm LV Septum (systole) 1.9 cm Left Atria (s.<4.0cm> 3.2 cm LVPW d(<1.2cm) 1.2 cm RV (d.<2.3cm) 2.7 cm LVPW (sytole) 2.2 cm LV diastole(<5.6CM) 5.7 cm MV E-F(>70mm/sec) cm LV systole 3.1 cm LVOT Diameter 1.9 cm MV exc.(>10mm) cm Est.ejection fraction (50-75%) % DOPPLER: LVIT cm/sec A 100 cm/sec E 85.0 cm/sec LA cm/sec RVSP 33.1 mmHg LVOT 173 cm/sec AOP1/2T 1674.m/s Asc. Ao 183 cm/sec RVOT 67.0 cm/sec RA cm/sec PA 97.0 cm/sec AV Gradient Peak 13.3 mmHg AV Mean 6.9 mmHg AV Area 2.9 cm MV Gradient Peak 3.9 mmHg MV Mean 1.4 mmHg MV Area cm COMMENTS: OP - HC Corrective Therapy Aide Teacher: Leticia ROMERO TOMASA Ruby Rails Developer: 1 Dr. Arguello TAPE# PACS Pericardial Effusion N DATE OF SERVICE: 03/29/2019 FINDINGS: 1. Left ventricular chamber size is mildly dilated. Left ventricular systolic function is preserved at 60%. 2. Left atrium, right atrium, and right ventricular chamber sizes are within normal limits. 3. Valvular structures have normal structure and motion. 4. Doppler interrogation reveals [id number] aortic insufficiency, moderate mitral regurgitation, trace tricuspid regurgitation, no other valvular ECHOCARDIOGRAM REPORT [id number] KULWINDER DUENAS insufficiency or stenosis. 5. No evidence of pericardial effusion or left ventricular thrombus. TRANSINT:[id number] Voice Confirmation ID: [id number] DOCUMENT ID: [id number] BRENDAN ARGUELLO MD at 0940 CC: [id number] DICTATION DATE: 03/29/19 1559 IUSS ANALYST: 03/30/19 0145 DEP CLI 03/29/19 [facility] [address] [place] [id number]
== END | disposition home or self-care (01) ==
LOC: D.HCCARDIO 14:09
PROVIDERS: ATTEND Internal Medicine Interventional Cardiology
DX: R01.1 Cardiac murmur, unspecified (principal)